=== PATIENT | female | born 1965 | race Caucasian/White ===

== ENCOUNTER → 2024-03-21 12:55 | Outpatient (REF) | payer OTHER, SELFPAY ==
[2024-03-21 14:39] LABS: Blood Urea Nitrogen 11 mg/dl (7-17)
== END ==
LOC: RAD 12:55
PROVIDERS: ATTENDING PHYSICIAN Internal Medicine Gastroenterology; FAMILY PHYSICIAN Nurse Practitioner Acute Care
DX: K57.92 Diverticulitis of intestine, part unspecified, without perforation or abscess without bleeding (principal)
CPT/HCPCS: 36415; 82565; 84520

== ENCOUNTER 2024-03-22 16:19 | Inpatient (IN) | payer OTHER, SELFPAY ==
[2024-03-22 13:51] VITALS: BP 131/87
[2024-03-22 14:07] LABS: % Basophils 0.5 % (0-2); % Eosinophils 1.2 % (0-6); % Immature Granulocytes 0.4 % (0-0.5); % Lymphocytes 12.4 % (20.5-51.1); % Neutrophils 77.5 % (42.2-75.2); Absolute Basophils 0.1 10^3/uL (0-0.2); Absolute Eosinophils 0.1 10^3/uL (0-0.7); Absolute Lymphocytes 1.1 10^3/uL (1.2-3.4); Absolute Monocytes 0.7 10^3/uL (0.1-0.6); Absolute Neutrophils 7.1 10^3/uL (1.4-6.5); Hematocrit 36.8 % (37.0-47.0); Mean Corp Hgb Conc. 35.3 g/dL (33.0-37.0); Mean Corpuscular Hgb 31.6 pg (27.0-31.0); Mean Corpuscular Volume 89.3 fL (81.0-99.0); Mean Platelet Volume 10.1 fL (7.4-10.4); Nucleated Red Blood Cells % 0 %; Platelet Count 239 10^3/uL (130-400); Red Blood Cell Count 4.12 10^6/uL (4.20-5.40); Red Cell Dist. Width 12.1 % (11.5-14.5); White Blood Cell Count 9.2 10^3/uL (4.8-10.8)
[2024-03-22 14:24] LABS: ALT (SGPT) 12 U/L (0-35); AST (SGOT) 21 U/L (14-36); Albumin 4.6 g/dl (3.5-5.0); Alkaline Phosphatase 69 U/L (38-126); Blood Urea Nitrogen 11 mg/dl (7-17); Calcium 9.1 mg/dl (8.4-10.2); Carbon Dioxide 22 mmol/L (22-30); Chloride 104 mmol/L (98-107); Glucose 126 mg/dl (70-99); Potassium 3.8 mmol/L (3.5-5.1); Sodium 135 mmol/L (135-145); Total Bilirubin 1.1 mg/dl (0.2-1.3); Total Protein 7.6 g/dl (6.3-8.2); eGFR > 60.00
--- NOTE | 2024-03-22 14:54 | ED.GENMED ---
History of Present Illness
General
Chief Complaint: Abnormal Lab Value
Source: patient
Exam Limitations: none
Time Seen by Provider: 03/22/24 14:34
Nursing documentation reviewed up to this point in time: agreed with
History of Present Illness
History of Present Illness:
Patient to ED for admission. States she had an outpatient abdominal CT today that showed diverticulitis with suspected abscess. CT ordered by Dr. Jimenez's office. Reports prior history of diverticulitis. Developed abdominal pain on Wednesday, continues
to worsen. Denies fever/chills. NO n/v. Reports diarrhea this AM.
Past History
Past History
ED Past Medical History: None
ED Past Surgical History: Gynecological
Social History
Tobacco: Non-smoker
Alcohol: Occasional
Drug: None
Personal:
Phy Exam
General Physical Exam
General Presentation: well appearing and no apparent distress
General age: appears stated age
General Skin: warm and dry
General Habitus: normal
General Mental: alert
General Hydration: appears well hydrated
Cardiovascular Exam
Cardiovascular Exam: regular rate/rhythm and no edema
Gastrointestinal Exam
Gastrointestinal Exam: normal bowel sounds, soft, no organomegaly, non distended and no cva tenderness
Palpation: left lower quadrant: Moderate tenderness and right lower quadrant: Moderate tenderness
Musculoskeletal Exam
Musculoskeletal Exam: full ROM and neuro vasc intact
Skin Exam
Skin Exam: normal color, warm/dry and no rash
Psychiatric Exam
Psychiatric Exam: normal mood/affect
Course
Orders/Labs/Results
Orders:
Orders
03/22/24 Breakfast
Clear Liquid
At Your Request: Limited Participation
03/22/24 13:57
CMP [Comprehensive Metabolic Panel] Urgent
Complete Blood Count/With Diff Urgent
03/22/24 15:04
ColoRectal Surgery Consult Urgent
Consulting Provider: Lenin Graham
Was physician already notified: Yes
Piperacillin/Tazo 3.375 Gram [Zosyn] 3.375 gram in 50 ml IV NOW
03/22/24 15:58
Admit/Transfer Patient As Directed
Co-Sign Provider:
Level of Care: Inpatient admission
Assign to:: Medical/Surgical
Physician / Group: kerline
Diagnosis: diverticulitis with abscess
Reason for Hospitalization: diverticulitis with abscess
Expected length of stay greater than two midnights?: Yes
ELOS- Estimated Length of Stay in days: 3
I certify the patient meets the requirements for IP care: Yes
03/22/24 15:59
Code Status As Directed
Resuscitation Status: Full Code
PRN Pain Medication Management As Directed
May give lesser potent ordered pain med per pt: Yes
preference::
Protocol:: Medication orders for pain may be administered in a
manner that supports deferring to patient preference
when the pt is:
- Requesting an ordered lesser potent pain medication.
Least to most potent pain medications are defined
as: acetaminophen < NSAID < tramadol < opioids
(morphine, oxycodone, hydromorphone).
- Requesting a lesser dose of the same medication IF
ORDERED.
- Requesting a less intrusive route of administration
if both routes are prescribed by the provider (PO <
IV).
03/22/24 17:27
0.9% Sodium Chloride 1000 ml [Nss] 1,000 ml IV 80 mls/hr
Acetaminophen [Tylenol] 650 mg PO Q4HPRN PRN
Bisacodyl [Dulcolax] 10 mg RECTAL [id number] PRN
Docusate W/Senna [Senokot-S] 1 tablet PO BIDPRN PRN
HYDROmorphone [Dilaudid] 0.5 mg IV Q4HPRN PRN
Polyethylene Glycol Powder [Miralax] 17 grams PO DAILYPRN PRN
03/22/24 17:27
Activity As Directed
Activity Level: As Tolerated
Vital Signs As Directed
Frequency: Per unit guidelines
DX Deep Vein Thrombosis Video Routine
03/22/24 18:00
Enoxaparin Sodium [Lovenox] 40 mg SC QPM
03/22/24 22:00
Piperacillin/Tazo 3.375 Gram [Zosyn] 3.375 gram in 50 ml IV Q6H
03/23/24 06:00
Basic Metabolic Panel IN AM
Complete Blood Count/No Diff IN AM
03/24/24 06:00
Basic Metabolic Panel IN AM
Complete Blood Count/No Diff IN AM
03/25/24 06:00
Basic Metabolic Panel IN AM
Complete Blood Count/No Diff IN AM
03/26/24 06:00
Basic Metabolic Panel IN AM
Complete Blood Count/No Diff IN AM
03/27/24 06:00
Basic Metabolic Panel IN AM
Complete Blood Count/No Diff IN AM
Abnormal Lab Results
03/22/24
13:57
RBC 4.12 L 10^6/uL
(4.20-5.40)
Hct 36.8 L %
(37.0-47.0)
MCH 31.6 H pg
(27.0-31.0)
Absolute Neuts (auto) 7.1 H 10^3/uL
(1.4-6.5)
Absolute Lymphs (auto) 1.1 L 10^3/uL
(1.2-3.4)
Absolute Monos (auto) 0.7 H 10^3/uL
(0.1-0.6)
Neutrophils % 77.5 H %
(42.2-75.2)
Lymphocytes % 12.4 L %
(20.5-51.1)
Glucose 126 H mg/dl
(70-99)
03/22/24 13:57
03/22/24 13:57
Vital Signs
Initial and Last Documented VS:
Initial Vital Signs
Temp Pulse Resp BP Pulse Ox
98.3 F 87 18 131/87 100
03/22/24 13:51 03/22/24 13:51 03/22/24 13:51 03/22/24 13:51 03/22/24 13:51
Last Documented Vital Signs
Temp Pulse Resp BP Pulse Ox
98.2 F 85 18 133/83 98
03/22/24 17:36 03/22/24 17:36 03/22/24 17:36 03/22/24 17:36 03/22/24 18:20
*Radiology
Radiology exam reviewed: preliminary read by ED provider
*Pulse Oximetry
Patient hypoxic: no
*Critical Care Note
Total Time (30-74mins, 75-104mins- exclusive of procedures): Not Applicable
ED Attending Note
-
Portions of this chart may have been created with voice recognition software.� Occasional wrong word or��sound alike� substitutions may have occurred due to the inherent limitations of voice recognition software.
Discharge Plan
Departure
Patient Disposition: Admit
Date of Disposition: 03/22/24
Time of Disposition: 14:58
Presentation/result/management discussed w/ accepting MD/DO: Hospitalist
Patient with high blood pressure during this ER visit?: No
Condition: Fair
Covid-19: Not Applicable
Discharge Problem:
Abscess of sigmoid colon due to diverticulitis
Interventions
Interventions:
*Risk Screen - Suicide Last Done: 03/22/24 13:51
*General Assessment Last Done: 03/22/24 13:51
*Neglect/Abuse Screening Last Done: 03/22/24 13:51
ED- Fall Risk Assessment Last Done: 03/22/24 15:15
*ED COVID-19 Vaccine History Last Done: 03/22/24 17:50
*Nursing Disposition Last Done: 03/22/24 17:18
Discharge Date and Time
Discharge Date/Time: 03/22/24 17:19
[2024-03-22 15:15] VITALS: BMI 23.9
[2024-03-22] MEDS: ZOSYN 50 IV ×2 (15:23→21:03)
[2024-03-22 15:26] VITALS: BP 125/76
--- NOTE | 2024-03-22 15:34 | HPS.HSE ---
Addendum entered and electronically signed by Shell Martines MD 03/22/24 16:11:
see my update note for addendum
Original Note:
Family Physician
-
Family Physician: JOSE Young
Chief Complaint
-
lower abdominal pain
History of Present Illness
59 year with past medical history for diverticulitis presented to us with lower abdominal pain for past 3 days. Her pain started on Wednesday. It was more constant yesterday. Eating aggravated the symptoms. Took Tylenol's with some relief in her
symptoms. Denied nausea, vomiting, diarrhea. Patient denied fever, chills, chest pain, short of breath. Patient denied headache, dizziness, syncopal episode. Patient denied dysuria hematuria.
CT with impression of Acute, uncomplicated sigmoid diverticulitis. No perisigmoid fluid collection or free air to suggest perforation. There is a possible intramural abscess within the lateral wall of the sigmoid colon.Multilevel lumbar spondylosis
with grade 1 anterolisthesis of L4 relative to L5.
Patient received Zosyn in ER. Admitting for further management
Medical History
Past Medical History
Past Medical History: Reports Other
Additional Past Medical History:
Diverticulitis
Past Surgical History: Reports Other
Additional Past Surgical History:
Ovary removed
Social History
Tobacco: Non-smoker
Alcohol: None
Drug: None
Personal:
Living: With Family
Employment: Retired
Family History
Family History: Not pertinent
Allergies / Home Medications
Allergies reflects when Allergies were last updated in [employer].
Home Medications with original date entered in [employer]
Allergy/Medication List:
Allergies
Allergy/AdvReac Type Severity Reaction Status Date / Time
No Known Allergies Allergy Verified 03/22/24 13:51
Home Medications
acetaminophen 500 mg tablet (Tylenol Extra Strength) 1,000 mg PO DAILYPRN PRN mild pain 03/22/24
Review of Systems
-
Constitutional: Reports No Symptoms
EENT: Reports No Symptoms
Respiratory: Reports No Symptoms
Cardiac: Reports No Symptoms
Abdomen/GI: Reports Abdominal Pain
: Reports No Symptoms
Musculoskeletal: Reports No Symptoms
Skin: Reports No Symptoms
Neurological: Reports No Symptoms
Endocrine: Reports No Symptoms
Hematologic/Lymphatic: Reports No Symptoms
Psych: Reports No Symptoms
Physical Exam
Vital Signs
Vital Signs
Temp Pulse Resp BP Pulse Ox
98.3 F 87 18 125/76 97
03/22/24 13:51 03/22/24 13:51 03/22/24 13:51 03/22/24 15:26 03/22/24 15:31
Physical Exam
General: Well Developed, Well Nourished and No Apparent Distress
HEENT: NormoCephalic, Moist mucous membranes and Atraumatic
Respiratory: Clear
Cardiac: S1/S2 and Regular Rhythm; No Murmur or Rub
GI: Soft, Non Distended, Normal Bowel Sounds and Tender; No Organomegaly
Rectal: Deferred by Provider
Musculoskeletal: No Clubbing, No Cyanosis and No Edema
Skin: No Rash
Neuro: AO x 3 and Nonfocal/grossly intact
Psych: Calm
Laboratory Results
-
03/22/24 13:57
03/22/24 13:57
Laboratory Results
Total Bilirubin 1.1 mg/dl (0.2-1.3) 03/22/24 13:57
AST 21 U/L (14-36) 03/22/24 13:57
ALT 12 U/L (0-35) 03/22/24 13:57
Alkaline Phosphatase 69 U/L (38-126) 03/22/24 13:57
Data Reviewed
-
CT Scan: Report Reviewed by me
Lab Data: Labs Reviewed by me
Impression/Plan
-
# Diverticulitis with possible abscess
# History of diverticulitis
-Surgery consulted
-CT abdomen pelvis with impression of Acute, uncomplicated sigmoid diverticulitis. No perisigmoid fluid collection or free air to suggest perforation. There is a possible intramural abscess within the lateral wall of the sigmoid colon.Multilevel
lumbar spondylosis with grade 1 anterolisthesis of L4 relative to L5.
-IV Zosyn
-Dilaudid as needed for pain
- clear liquid diet
-Colorectal consulted
# DVT prophylaxis
-Lovenox subcu
# CODE STATUS
Full code-
--- NOTE | 2024-03-22 15:56 | W.PN.UPDATE ---
Update Note
Progress Note Update
I saw and examined the patient.
The MENTAL RETARDATION NURSE Robert's note was reviewed and I agree with the note.
Comment: 59 y/o F presenting to ER with abdominal pain since Wednesday and has become more severe and constant. pain worsened with eating and minimal relief with Tylenol. no N/V/D. Patient contacted GI who ordered a CT which showed acute diverticulitis
with abscess; patient was referred to the ER.
in ER, received Zosyn, fluids and admitted.
Physical Exam
General: Well Developed, Well Nourished and No Apparent Distress
HEENT: Normocephalic, Moist mucous membranes and Atraumatic
Respiratory: Clear
Cardiac: S1/S2 and Regular Rhythm; No Murmur or Rub
GI: Soft, Non Distended, Normal Bowel Sounds and Tender; No Organomegaly
Rectal: Deferred by Provider
Musculoskeletal: No Clubbing, No Cyanosis and No Edema
Skin: No Rash
Neuro: AO x 3 and Nonfocal/grossly intact
Psych: Calm
Assessment:
Acute sigmoid diverticulitis with intramural abscess (complicated diverticulitis)
Prior hx of diverticulitis episodes
- IVF
- IV Zosyn, day 1
- pain control, anti-emetics
- clears for now
- CRS consulted
DVT ppx: Lovenox
Code: Full
[2024-03-22 16:00] VITALS: BP 120/82
--- NOTE | 2024-03-22 17:16 | CON.CRS ---
Consultation
-
Reason for Consultation: diverticulitis
Medical History
-
Chief Complaint: Abdominal pain
History of Present Illness:
49-year-old female with 2 prior attacks of diverticulitis (per the patient) here with concern for the same. She has had lower abdominal pain for 3 days. She recommends the symptoms. She admits she was having trouble eating as well. She
communicated with Dr. Jimenez's office and an outpatient CT was recommended. She did pursue this and the report and images are available for review. This confirms sigmoid diverticulitis with a possible small intramural abscess. No obstruction or
perforation noted. She was guided to come in through the ER for potential admission. In the ER her white count is normal but she does have a left shift. The remainder of her labs are unremarkable. She is afebrile with stable vital signs. She
admits she feels a bit better today. She is apparently being admitted to the medical service. I was consulted for colorectal surgical opinion regarding her situation.
Of note on discussion of her prior attacks, she admits 1 was documented on colonoscopy by Dr. Chang. On review of her prior colonoscopies she had [address] Chang. The first 1 in 2016 indeed apparently did show diverticular disease as well as
inflammation of the sigmoid consistent with diverticulitis. This in my opinion would qualify as a jace susana attack that was confirmed. Subsequent to that she had another flare which led to outpatient antibiotics with resolution. The last flare
prior to this 1 was not documented on imaging or colonoscopy. She admits that all 3 flares have been similar in terms of lower abdominal discomfort and pain. Her last colonoscopy by Dr. Chang in 2020 did confirm diverticular disease without
diverticulitis. Benign polyp was noted and removed as well.
Past Medical History
Past Medical History: None
Past Surgical History: Gynecological (Ovarian cystectomy)
Social History
Tobacco: Non-Smoker
Alcohol: None
Personal:
Living: With Family
Employment: Retired
Family History
Family History: Reviewed & Not Pertinent
Allergies / Home Medications
Allergy/AdvReac Type Severity Reaction Status Date / Time
No Known Allergies Allergy Verified 03/22/24 13:51
�Medication �Instructions �Recorded �Confirmed �Type
acetaminophen 500 mg tablet 1,000 mg PO DAILYPRN PRN mild pain 03/22/24 03/22/24 History
(Tylenol Extra Strength)
Review of Systems
-
A 10 point review of systems was completed, and was negative except as per HPI.
Physical Exam
Vital Signs
Temp 98.3 F 03/22/24 13:51
Pulse 87 03/22/24 13:51
Resp Rate 18 03/22/24 13:51
Blood pressure 120/82 03/22/24 16:00
SaO2 100 03/22/24 16:45
03/21/24 03/22/24 03/23/24
06:59 06:59 06:59
Actual Weight 67 kg
Body Mass Index (BMI) 23.9
Lab Results / Allergies
03/22/24 13:57
03/22/24 13:57
WBC 9.2 10^3/uL (4.8-10.8) 03/22/24 13:57
Hgb 13.0 g/dL (12.0-16.0) 03/22/24 13:57
Hct 36.8 % (37.0-47.0) L 03/22/24 13:57
Plt Count 239 10^3/uL (130-400) 03/22/24 13:57
Abs Immat Gran (auto) 0.0 10^3/uL (0-0.05) 03/22/24 13:57
Neutrophils % 77.5 % (42.2-75.2) H 03/22/24 13:57
Allergy/AdvReac Type Severity Reaction Status Date / Time
No Known Allergies Allergy Verified 03/22/24 13:51
Physical Exam
General: Well Developed
HEENT: Normocephalic
Respiratory: Clear
Cardiac: Regular Rhythm
GI: Tender (Mild lower abdominal)
Skin: Warm and Dry
Neuro: AO x 3
Psych: Calm
Data Reviewed
-
CT Scan: Image Personally Visualized and interpreted, Report Reviewed by me and Discussed with Patient
Labs: Labs Reviewed by me and Discussed with Patient
Assessment / Plan
-
59-year-old female with sigmoid diverticulitis with intramural abscess. She is stable and not an extremis. This is her third attack perhaps. There is no role for IR intervention given the intramural location and the small size of the abscess. I
do believe antibiotics and themselves will take care of this issue. If she is admitted, IV antibiotics, IV hydration, and diet restriction would be in order. Clear liquids should be okay. Will follow along.
[2024-03-22 17:36] VITALS: BP 133/83
[2024-03-22 17:37] VITALS: BMI 23.4
[2024-03-22] MEDS: NSS 1000 IV (18:38)
[2024-03-22] MEDS: TYLENOL 650 MG PO (19:46)
[2024-03-22 23:22] VITALS: BP 94/53
[2024-03-22 23:38] VITALS: BP 110/70
[2024-03-23] MEDS: ZOSYN 50 IV ×2 (03:04→09:56)
[2024-03-23] MEDS: NSS 1000 IV (05:42)
[2024-03-23 07:53] VITALS: BP 116/70
[2024-03-23 08:11] LABS: Hematocrit 36.1 % (37.0-47.0); Hemoglobin 12.4 g/dL (12.0-16.0); Mean Corp Hgb Conc. 34.3 g/dL (33.0-37.0); Mean Corpuscular Hgb 31.2 pg (27.0-31.0); Mean Corpuscular Volume 90.9 fL (81.0-99.0); Mean Platelet Volume 10.8 fL (7.4-10.4); Platelet Count 238 10^3/uL (130-400); Red Blood Cell Count 3.97 10^6/uL (4.20-5.40); White Blood Cell Count 4.9 10^3/uL (4.8-10.8)
[2024-03-23 08:41] LABS: Blood Urea Nitrogen 10 mg/dl (7-17); Calcium 8.9 mg/dl (8.4-10.2); Carbon Dioxide 23 mmol/L (22-30); Chloride 108 mmol/L (98-107); Estimated Creatinine Clearance 69 ml/min; Glucose 85 mg/dl (70-99); Sodium 140 mmol/L (135-145); eGFR > 60.00
--- NOTE | 2024-03-23 12:39 | W.PN.HOSP.TC ---
Today's Communication/Plan
-
dc to home
Assessment / Plan
Assessment / Plan
Assessment:
Acute sigmoid diverticulitis with intramural abscess (complicated diverticulitis)
Prior hx of diverticulitis episodes
- tolerated LRD
- dc on Cipro/Flagyl x 14 days
- OP CRS f/u or PCP f/u
DVT ppx: Lovenox
Code: Full
More than 30 minutes spent in discharge including
Final examination of the patient
Summarizing hospital stay
Instructions for continuing care to all relevant caregivers
Preparation of discharge records, prescriptions, and referral forms
Total time spent (in minutes): 41
Anticipated Discharge: Today
Subjective/Interval History
-
Date of Service: March 23, 2024
no new complaints presently
BM last evening
tolerating LRD today
Objective Data
-
Labs:
Laboratory Results
03/23/24
06:11
WBC 4.9
Hgb 12.4
Hct 36.1 L
Plt Count 238
Sodium 140
Potassium 4.0
Chloride 108 H
Carbon Dioxide 23
BUN 10
Creatinine 0.8
Glucose 85
Calcium 8.9
Vital Signs:
Vital Signs
Temp Pulse Resp BP Pulse Ox
98.1 F 77 20 116/70 95
03/23/24 07:53 03/23/24 07:53 03/23/24 07:53 03/23/24 07:53 03/23/24 11:29
I&O
03/22/24 03/23/24 03/24/24
06:59 06:59 06:59
Intake Total 1540 / 1540
Balance 1540 / 1540
Physical Exam
-
General: No Apparent Distress
HEENT: Normocephalic and Atraumatic
Respiratory: Negative Wheezes
Cardiac: Regular Rhythm and S1/S2
GI: Soft and Nontender
Musculoskeletal: No Edema
Neuro: AO x 3
Psych: Calm
Data Reviewed
-
Total Time Spent with Patient (in minutes): 41
Labs: Labs Reviewed by me
--- NOTE | 2024-03-23 12:55 | W.DS.TRANS ---
DC Summary - Supervisor Pairing And Inspecting
-
Discharge Instructions:
Discharge Diagnosis/Procedures diverticulitis with abscess
Diet Low Residue
Additional Diets for 2 weeks then regular diet
Activity As tolerated,No restrictions
Bathing Restrictions None
Instructions:
Stand-Alone Forms:
Changes to Home Medications: No
Discharge Medications:
DC Medications w/original date entered in [employer]
acetaminophen 500 mg tablet (Tylenol Extra Strength) 1,000 mg PO DAILYPRN PRN mild pain 03/22/24
ciprofloxacin HCl 500 mg tablet (Cipro) 500 mg PO BID #28 tabs 03/23/24
metronidazole 500 mg tablet 500 mg PO TID #42 tabs 03/23/24
Home Medication Changes
Pending Results: No
Total time spent discharging patient (in min): 42
--- NOTE | 2024-03-23 13:04 | W.PN.CRS1 ---
Today's Communication / Plan
-
Low residue diet
Assessment/Plan
-
59-year-old female with sigmoid diverticulitis with intramural abscess.
-Advance diet to low residue
-No surgery indicated at this time
-Follow-up with Dr. Leija in the office in a few weeks as she has had several attacks in the past.
-Finished outpatient course of antibiotics at discharge
-Discharge per hospitalist
Subjective Data
Subjective Data
Date of Service: March 23, 2024
Patient states she feels well. She is hungry. She has no nausea or vomiting. She has no complaints.
Objective Data
-
Vital Signs
Temp Pulse Resp BP Pulse Ox
98.1 F 77 20 116/70 95
03/23/24 07:53 03/23/24 07:53 03/23/24 07:53 03/23/24 07:53 03/23/24 11:29
Intake & Output
03/22/24 03/23/24 03/24/24
06:59 06:59 06:59
Intake Total 1540 / 1540
Balance 1540 / 1540
Intake:
Oral fluids 480 / 480
IV fluids (Total) 960 / 960
IV piggybacks 100 / 100
Other:
Number of approximated MODERATE 2
amounts of urine
Lab Results
03/23/24 06:11
03/23/24 06:11
Physical Exam
-
General: No Acute Distress and AOx3
Abdomen: Soft, Non Distended and Non Tender
Skin: Warm and Dry
[2024-03-23 13:10] VITALS: BP 120/76
--- NOTE | 2024-03-23 15:44 | CM ---
CM met with Tisha prior to discharge this AM to complete IA.
Tisha lives with her Kashif in a 2 story home with 1 entry step.
Tisha has been (I) amb and adls and will return home with her at discharge.
Plan: Discharge to home with no needs.
PCP: Kristine Rome
Pharmacy: [facility]
== END 2024-03-23 13:53 | disposition home or self-care (01) | DRG 392 ==
LOC: 4 EAST ACU 16:19
PROVIDERS: Emergency Medicine; Registered Nurse; ADMITTING PHYSICIAN Internal Medicine; EMERGENCY PHYSICIAN Student in an Organized Health Care Education/Training Program; FAMILY PHYSICIAN Nurse Practitioner Acute Care; OTHER PHYSICIAN Surgery
DX: K57.20 Diverticulitis of large intestine with perforation and abscess without bleeding (principal); M43.16 Spondylolisthesis, lumbar region; M47.816 Spondylosis without myelopathy or radiculopathy, lumbar region; Z87.19 Personal history of other diseases of the digestive system
CPT/HCPCS: 74177; 80048; 80053; 85025; 85027; 96365; 99284; Q9967

== ENCOUNTER 2024-07-11 20:39 | Emergency (ER) | payer OTHER, SELFPAY ==
[2024-07-11 20:47] VITALS: BP 141/96
[2024-07-11 20:59] LABS: % Basophils 0.8 % (0-2); % Eosinophils 3.1 % (0-6); % Lymphocytes 38.7 % (20.5-51.1); % Monocytes 9.8 % (1.7-9.3); % Neutrophils 47.6 % (42.2-75.2); Absolute Eosinophils 0.2 10^3/uL (0-0.7); Absolute Monocytes 0.5 10^3/uL (0.1-0.6); Absolute Neutrophils 2.5 10^3/uL (1.4-6.5); Hematocrit 38.9 % (37.0-47.0); Hemoglobin 13.5 g/dL (12.0-16.0); Mean Corp Hgb Conc. 34.7 g/dL (33.0-37.0); Mean Corpuscular Hgb 31.4 pg (27.0-31.0); Mean Corpuscular Volume 90.5 fL (81.0-99.0); Nucleated Red Blood Cells % 0 %; Platelet Count 262 10^3/uL (130-400); Red Cell Dist. Width 12.6 % (11.5-14.5); White Blood Cell Count 5.2 10^3/uL (4.8-10.8)
[2024-07-11 21:14] LABS: ALT (SGPT) 16 U/L (0-35); AST (SGOT) 29 U/L (14-36); Albumin 4.8 g/dl (3.5-5.0); Alkaline Phosphatase 49 U/L (38-126); Blood Urea Nitrogen 16 mg/dl (7-17); Calcium 9.2 mg/dl (8.4-10.2); Carbon Dioxide 22 mmol/L (22-30); Chloride 105 mmol/L (98-107); Glucose 105 mg/dl (70-99); Sodium 141 mmol/L (135-145); Total Bilirubin 0.3 mg/dl (0.2-1.3); Total Protein 8.1 g/dl (6.3-8.2); eGFR > 60.00
[2024-07-11 21:15] LABS: Lipase 175 U/L (23-300)
[2024-07-11 22:13] VITALS: BP 136/74
== END 2024-07-11 22:14 ==
LOC: EMR 20:39
PROVIDERS: Emergency Medicine
DX: R10.31 Right lower quadrant pain (principal)
CPT/HCPCS: 80053; 83690; 85025

== ENCOUNTER → 2024-07-26 08:34 | Outpatient (REF) | payer OTHER, SELFPAY | LOC: HWWDC 08:34 | PROVIDERS: ATTENDING PHYSICIAN Obstetrics & Gynecology Gynecology; FAMILY PHYSICIAN Family Medicine | DX: Z78.0 Asymptomatic menopausal state (principal); Z12.31 Encounter for screening mammogram for malignant neoplasm of breast | CPT/HCPCS: 77063; 77067; 77080 ==

== ENCOUNTER → 2024-09-27 10:31 | Outpatient (REF) | payer OTHER, SELFPAY | LOC: REG 10:31 | PROVIDERS: ATTENDING PHYSICIAN Family Medicine | DX: R22.41 Localized swelling, mass and lump, right lower limb (principal) | CPT/HCPCS: 73564 ==